=== PATIENT | male | born 1945 | race Caucasian/White ===

== ENCOUNTER 2020-12-21 16:56 | Emergency (ER) | payer MEDICARE, BC ==
[~2020-12-21 16:56] MED LIST: ALBUTEROL SULFAT2 MG PO; ASPIR 8181 MG PO; DAILY VITAMIN1 EAC3 PO; INDOMETHACIN75 MG PO; LIPITOR20 MG PO; METOPROLOL TART25 MG PO; PROAIR HFA INH8.5 GM PO; SYMBICORT 16010.2 GM PO; VITAMIN D31000 UNI1 PO
[2020-12-21 17:22] LABS: BASOPHILS # (AUTO) 0.1 (0.0-0.1); BASOPHILS % 0.5 % (0.0-1.0); EOSINOPHILS # (AUTO) 0.3 (0.0-0.4); EOSINOPHILS % 2.9 % (0.0-6.0); HEMOGLOBIN 13.3 g/dL (14.0-18.0); LYMPHOCYTES # (AUTO) 1.3 (1.0-3.2); LYMPHOCYTES % 13.5 % (18.0-39.1); MEAN CORPUSCULAR HEMOGLOBIN 29.4 pg (28-32); MEAN CORPUSCULAR HGB CONC 31.7 g/dL (31-35); MEAN CORPUSCULAR VOLUME 92.7 fL (81-99); NEUTROPHILS # (AUTO) 6.9 (2.1-6.9); NEUTROPHILS % 72.8 % (38.7-80.0); PLATELET COUNT 289 x10e3/uL (140-360); RED BLOOD COUNT 4.53 x10e6/uL (4.3-5.7); RED CELL DISTRIBUTION WIDTH 13.2 % (11.7-14.4)
[2020-12-21] MEDS ORDERED: CEFEPIME 1 GM in SODIUM CHLORIDE 0.9% 50ML 50 ML IV SCH (17:30)
[2020-12-21 17:37] LABS: ALBUMIN 3.4 g/dL (3.5-5.0); ALBUMIN/GLOBULIN RATIO 0.9 (0.8-2.0); ANION GAP 15.1 mmol/L (8-16); CALCIUM 9.3 mg/dL (8.4-10.2); CREATININE, SERUM 0.82 mg/dL (0.72-1.25); POTASSIUM 4.1 mmol/L (3.5-5.1)
[2020-12-21] MEDS ORDERED: Vancomycin IV 1 GM in SODIUM CHLORIDE 0.9% 250ML 250 ML IV SCH (18:00)
[2020-12-22 01:28] VITALS: BP 18/72
== END 2020-12-22 01:36 | disposition short-term general hospital (02) ==
LOC: ER 17:11
DX: L03.032 Cellulitis of left toe (principal); S91.302A Unspecified open wound, left foot, initial encounter; I10 Essential (primary) hypertension; J44.9 Chronic obstructive pulmonary disease, unspecified; Z85.528 Personal history of other malignant neoplasm of kidney
CPT/HCPCS: 36415; 73630; 80053; 83605; 85025; 87040; 99284; J0692; J3370; J7050

== ENCOUNTER 2021-01-11 09:27 | Outpatient (RCR) | payer MEDICARE, BC ==
[~2021-01-11 09:27] MED LIST changes: +AMMONIUM LACTATE 12% LOTION 225GM BTL ONE; +LIDOCAINE VISC 2% SOLN 15 ML UDC ONE; +LIDOCAINE/PRILOCAINE 2.5-2.5% KIT ONE; +MUPIROCIN 2% OINT 22 GM TUBE ONE
== END 2021-01-13 ==
LOC: WCC 09:27
PROVIDERS: ATTEND Family Medicine Adult Medicine
DX: I70.244 Atherosclerosis of native arteries of left leg with ulceration of heel and midfoot (principal); L97.421 Non-pressure chronic ulcer of left heel and midfoot limited to breakdown of skin; L97.521 Non-pressure chronic ulcer of other part of left foot limited to breakdown of skin; I70.245 Atherosclerosis of native arteries of left leg with ulceration of other part of foot; L03.818 Cellulitis of other sites; L84 Corns and callosities; R60.0 Localized edema; G90.09 Other idiopathic peripheral autonomic neuropathy; I10 Essential (primary) hypertension; E78.5 Hyperlipidemia, unspecified; J44.9 Chronic obstructive pulmonary disease, unspecified; Z85.59 Personal history of malignant neoplasm of other urinary tract organ
CPT/HCPCS: 36415; 82948; 87071; 87075; 87186; 87205

== ENCOUNTER 2021-02-08 08:55 | Outpatient (RCR) | payer MEDICARE, BC ==
[~2021-02-08 08:55] MED LIST changes: -MUPIROCIN 2% OINT 22 GM TUBE ONE; +TRYPSIN/BALSAM PERU/CASTOR OIL ONE
== END 2021-02-13 ==
LOC: WCC 08:55
PROVIDERS: ATTEND Family Medicine Adult Medicine
DX: T81.89XA Other complications of procedures, not elsewhere classified, initial encounter (principal); L97.421 Non-pressure chronic ulcer of left heel and midfoot limited to breakdown of skin; I70.244 Atherosclerosis of native arteries of left leg with ulceration of heel and midfoot; R60.0 Localized edema; L84 Corns and callosities; G90.09 Other idiopathic peripheral autonomic neuropathy; I10 Essential (primary) hypertension; B96.5 Pseudomonas (aeruginosa) (mallei) (pseudomallei) as the cause of diseases classified elsewhere; J44.9 Chronic obstructive pulmonary disease, unspecified; E78.5 Hyperlipidemia, unspecified; Z85.59 Personal history of malignant neoplasm of other urinary tract organ; X58.XXXA Exposure to other specified factors, initial encounter
CPT/HCPCS: 87071; 87075; 87205

== ENCOUNTER 2021-03-13 08:40 | Outpatient (RCR) | payer MEDICARE, BC ==
[~2021-03-13 08:40] MED LIST changes: -IOPAMIDOL 370 MG/ML 200 ML INFUS..BTL INJ ONE; -SODIUM CHLORIDE 0.9% 100 ML ONE
== END 2021-03-15 ==
LOC: WCC 08:40
PROVIDERS: ATTEND Family Medicine Adult Medicine
DX: I70.244 Atherosclerosis of native arteries of left leg with ulceration of heel and midfoot (principal); L97.421 Non-pressure chronic ulcer of left heel and midfoot limited to breakdown of skin; S91.102A Unspecified open wound of left great toe without damage to nail, initial encounter; R60.0 Localized edema; G90.09 Other idiopathic peripheral autonomic neuropathy; L84 Corns and callosities; I10 Essential (primary) hypertension; E78.5 Hyperlipidemia, unspecified; J44.9 Chronic obstructive pulmonary disease, unspecified; R26.81 Unsteadiness on feet; Z85.59 Personal history of malignant neoplasm of other urinary tract organ; X58.XXXA Exposure to other specified factors, initial encounter
CPT/HCPCS: 11042 ×3; 11045; 15275 ×2; 99213 ×7; Q4160 ×2

== ENCOUNTER → 2021-03-13 | Outpatient (CLI) | payer MEDICARE, BC ==
[~2021-03-13] MED LIST changes: -AMMONIUM LACTATE 12% LOTION 225GM BTL ONE; +IOPAMIDOL 370 MG/ML 200 ML INFUS..BTL INJ ONE; -LIDOCAINE VISC 2% SOLN 15 ML UDC ONE; -LIDOCAINE/PRILOCAINE 2.5-2.5% KIT ONE; +SODIUM CHLORIDE 0.9% 100 ML ONE; -TRYPSIN/BALSAM PERU/CASTOR OIL ONE
[2021-03-13 12:51] LABS: ANION GAP 15.5 mmol/L (8-16); CALCIUM 9.5 mg/dL (8.4-10.2); CREATININE, SERUM 0.71 mg/dL (0.72-1.25); POTASSIUM 4.5 mmol/L (3.5-5.1)
== END ==
LOC: CT 11:48
PROVIDERS: ATTEND Internal Medicine Interventional Cardiology
DX: I73.9 Peripheral vascular disease, unspecified (principal)
CPT/HCPCS: 36415; 75635; 80048; J7050; Q9967

== ENCOUNTER 2021-03-22 11:41 | Inpatient (IN) | payer MEDICARE, BC ==
[~2021-03-22] VITALS: Ht 188 cm; Wt 70.3 kg
[2021-03-22] MEDS ORDERED: NAPROXEN250 MG PO (14:11)
[2021-03-22] MEDS ORDERED: CYCLOBENZAPRINE10 MG PO (14:11)
[2021-03-22] MEDS ORDERED: ACETAMINOPHEN 325 MG TAB PO PRN (15:15)
[2021-03-22] MEDS ORDERED: ONDANSETRON HCL INJ 2MG/ML 2ML 2 MG/ML VIAL IV PRN (15:15)
[2021-03-22 15:17] VITALS: BP 138/70
[2021-03-22] MEDS ORDERED: Vancomycin IV 1 GM in SODIUM CHLORIDE 0.9% 250ML 250 ML IV ONE (16:00)
[2021-03-22] MEDS: ALBUTEROL SULFATE HFA 8GM INHALATION AEROSOL INH SCH (16:00)
[2021-03-22] MEDS: CHOLECALCIFEROL 1,000 UNIT TAB PO SCH (16:04)
[2021-03-22] MEDS: ENOXAPARIN SOD INJ 40 MG/0.4 ML SYR SC SCH (16:04)
[2021-03-22] MEDS: METOPROLOL TARTRATE 25 MG TAB PO SCH (16:07)
[2021-03-22] MEDS: BUDESONIDE/FORMOTEROL 160/4.5MCG INHALER INH SCH (19:00)
[2021-03-22 19:35] VITALS: BP 91/48
[2021-03-22] MEDS: CEFEPIME 1 GM in SODIUM CHLORIDE 0.9% 50ML 50 ML IV SCH (21:50)
[2021-03-23] VITALS (11 sets, daily range): BP systolic 97–122; BP diastolic 52–66
[2021-03-23] MEDS ORDERED: Vancomycin IV 1 GM in SODIUM CHLORIDE 0.9% 250ML 250 ML IV SCH ×2 (04:00→18:00)
[2021-03-23] MEDS: CEFEPIME 1 GM in SODIUM CHLORIDE 0.9% 50ML 50 ML IV SCH ×2 (04:38→12:24)
[2021-03-23 05:01] LABS: BASOPHILS % 0.4 % (0.0-1.0); EOSINOPHILS # (AUTO) 0.1 (0.0-0.4); EOSINOPHILS % 0.7 % (0.0-6.0); HEMATOCRIT 39.9 % (38.2-49.6); HEMOGLOBIN 12.2 g/dL (14.0-18.0); LYMPHOCYTES # (AUTO) 0.8 (1.0-3.2); LYMPHOCYTES % 7.8 % (18.0-39.1); MEAN CORPUSCULAR HEMOGLOBIN 27.5 pg (28-32); MEAN CORPUSCULAR HGB CONC 30.6 g/dL (31-35); MEAN CORPUSCULAR VOLUME 89.9 fL (81-99); MONOCYTES # (AUTO) 1.4 (0.2-0.8); MONOCYTES % 13.9 % (4.4-11.3); NEUTROPHILS # (AUTO) 7.6 (2.1-6.9); NEUTROPHILS % 76.9 % (38.7-80.0); PLATELET COUNT 203 x10e3/uL (140-360); RED BLOOD COUNT 4.44 x10e6/uL (4.3-5.7); RED CELL DISTRIBUTION WIDTH 13.2 % (11.7-14.4)
[2021-03-23 05:20] LABS: ALBUMIN 2.8 g/dL (3.5-5.0); ALBUMIN/GLOBULIN RATIO 0.9 (0.8-2.0); ANION GAP 14.1 mmol/L (8-16); CALCIUM 8.8 mg/dL (8.4-10.2); CREATININE, SERUM 0.89 mg/dL (0.72-1.25); POTASSIUM 4.1 mmol/L (3.5-5.1)
[2021-03-23] MEDS: ASPIRIN 81 MG CHEW TAB PO SCH (08:37)
[2021-03-23] MEDS: CHOLECALCIFEROL 1,000 UNIT TAB PO SCH (08:37)
[2021-03-23] MEDS: ATORVASTATIN 20 MG TAB PO SCH (08:37)
[2021-03-23] MEDS: METOPROLOL TARTRATE 25 MG TAB PO SCH ×2 (08:37→16:22)
[2021-03-23] MEDS: ENOXAPARIN SOD INJ 40 MG/0.4 ML SYR SC SCH (16:22)
[2021-03-24] VITALS (7 sets, daily range): BP systolic 90–113; BP diastolic 52–77
[2021-03-24] MEDS: ACETAMINOPHEN/CODEINE 300MG - 30MG TAB PO PRN ×3 (00:05→21:34)
[2021-03-24] MEDS: METOPROLOL TARTRATE 25 MG TAB PO SCH ×2 (09:00→17:00)
[2021-03-24] MEDS: ASPIRIN 81 MG CHEW TAB PO SCH (09:00)
[2021-03-24] MEDS: ATORVASTATIN 20 MG TAB PO SCH (09:00)
[2021-03-24] MEDS: CHOLECALCIFEROL 1,000 UNIT TAB PO SCH (09:00)
[2021-03-24] MEDS: Vancomycin IV 1 GM in SODIUM CHLORIDE 0.9% 250ML 250 ML IV SCH ×2 (09:30→21:44)
[2021-03-24] MEDS ORDERED: CYCLOBENZAPRINE HCL 10 MG TAB PO PRN (16:15)
[2021-03-24] MEDS: ENOXAPARIN SOD INJ 40 MG/0.4 ML SYR SC SCH (17:00)
[2021-03-24] MEDS: ALBUTEROL SULFATE 2 MG TAB PO SCH (17:00)
[2021-03-24] MEDS: NAPROXEN 250 MG TAB PO SCH (17:00)
[2021-03-25] VITALS (9 sets, daily range): BP systolic 98–121; BP diastolic 47–65
[2021-03-25] MEDS: ALBUTEROL SULFATE 2 MG TAB PO SCH ×2 (09:00→16:53)
[2021-03-25] MEDS: Vancomycin IV 1 GM in SODIUM CHLORIDE 0.9% 250ML 250 ML IV SCH ×2 (09:00→21:15)
[2021-03-25] MEDS: METOPROLOL TARTRATE 25 MG TAB PO SCH ×2 (09:00→16:48)
[2021-03-25] MEDS: CHOLECALCIFEROL 1,000 UNIT TAB PO SCH (09:00)
[2021-03-25] MEDS: ASPIRIN 81 MG CHEW TAB PO SCH (09:00)
[2021-03-25] MEDS: NAPROXEN 250 MG TAB PO SCH ×2 (09:00→16:51)
[2021-03-25] MEDS: ATORVASTATIN 20 MG TAB PO SCH (09:00)
[2021-03-25] MEDS: MUPIROCIN 2% OINT 22 GM TUBE TOP SCH (10:00)
[2021-03-25] MEDS ORDERED: BISACODYL 5 MG TAB EC PO ONE (16:30)
[2021-03-25] MEDS ORDERED: SODIUM CHLORIDE 0.9% 250ML 250 ML ONE (21:24)
[2021-03-25] MEDS: CEFEPIME 1 GM in SODIUM CHLORIDE 0.9% 50ML 50 ML IV SCH (22:45)
[2021-03-25] MEDS: ACETAMINOPHEN/CODEINE 300MG - 30MG TAB PO PRN (23:41)
[2021-03-26] VITALS (9 sets, daily range): BP systolic 84–141; BP diastolic 54–72
[2021-03-26 05:05] LABS: RED BLOOD COUNT 4.53 x10e6/uL (4.3-5.7)
[2021-03-26 05:06] LABS: BASOPHILS # (AUTO) 0.1 (0.0-0.1); BASOPHILS % 0.8 % (0.0-1.0); EOSINOPHILS # (AUTO) 0.2 (0.0-0.4); EOSINOPHILS % 2.6 % (0.0-6.0); HEMATOCRIT 39.9 % (38.2-49.6); HEMOGLOBIN 12.5 g/dL (14.0-18.0); LYMPHOCYTES # (AUTO) 0.9 (1.0-3.2); LYMPHOCYTES % 11.6 % (18.0-39.1); MEAN CORPUSCULAR HEMOGLOBIN 27.6 pg (28-32); MEAN CORPUSCULAR HGB CONC 31.3 g/dL (31-35); MEAN CORPUSCULAR VOLUME 88.1 fL (81-99); MONOCYTES # (AUTO) 0.7 (0.2-0.8); MONOCYTES % 9.4 % (4.4-11.3); NEUTROPHILS # (AUTO) 5.7 (2.1-6.9); NEUTROPHILS % 75.2 % (38.7-80.0); PLATELET COUNT 226 x10e3/uL (140-360); RED CELL DISTRIBUTION WIDTH 13.2 % (11.7-14.4)
[2021-03-26 05:23] LABS: INR 0.96; PARTIAL THROMBOPLASTIN TIME 34.1 seconds (23.8-35.5); PROTHROMBIN TIME 13.2 seconds (11.9-14.5)
[2021-03-26] MEDS: CEFEPIME 1 GM in SODIUM CHLORIDE 0.9% 50ML 50 ML IV SCH ×3 (05:33→22:45)
[2021-03-26 05:49] LABS: ANION GAP 15.1 mmol/L (8-16); CALCIUM 9.1 mg/dL (8.4-10.2); CREATININE, SERUM 0.75 mg/dL (0.72-1.25); POTASSIUM 4.1 mmol/L (3.5-5.1)
[2021-03-26] MEDS: BUDESONIDE/FORMOTEROL 160/4.5MCG INHALER INH SCH (07:00)
[2021-03-26] MEDS: ALBUTEROL SULFATE HFA 8GM INHALATION AEROSOL INH SCH ×3 (07:00→15:00)
[2021-03-26] MEDS: Vancomycin IV 1 GM in SODIUM CHLORIDE 0.9% 250ML 250 ML IV SCH ×2 (08:37→21:23)
[2021-03-26] MEDS: ATORVASTATIN 20 MG TAB PO SCH (08:38)
[2021-03-26] MEDS: ASPIRIN 81 MG CHEW TAB PO SCH (08:38)
[2021-03-26] MEDS: METOPROLOL TARTRATE 25 MG TAB PO SCH ×2 (08:39→16:24)
[2021-03-26] MEDS: NAPROXEN 250 MG TAB PO SCH ×2 (08:40→16:24)
[2021-03-26] MEDS: CHOLECALCIFEROL 1,000 UNIT TAB PO SCH (08:40)
[2021-03-26] MEDS: MUPIROCIN 2% OINT 22 GM TUBE TOP SCH (08:40)
[2021-03-26] MEDS: ALBUTEROL SULFATE 2 MG TAB PO SCH ×3 (09:00→16:24)
[2021-03-26] MEDS: CHOLESTYRAMINE 4 GM PACKET PO SCH (21:23)
[2021-03-27 00:04] VITALS: BP 134/68
[2021-03-27] MEDS: CEFEPIME 1 GM in SODIUM CHLORIDE 0.9% 50ML 50 ML IV SCH ×2 (05:20→14:00)
[2021-03-27 05:45] VITALS: BP 123/56
[2021-03-27] MEDS: ALBUTEROL SULFATE HFA 8GM INHALATION AEROSOL INH SCH ×3 (07:00→15:04)
[2021-03-27] MEDS: BUDESONIDE/FORMOTEROL 160/4.5MCG INHALER INH SCH (07:00)
[2021-03-27 07:34] VITALS: BP 105/68
[2021-03-27] MEDS: ATORVASTATIN 20 MG TAB PO SCH (08:27)
[2021-03-27] MEDS: Vancomycin IV 1 GM in SODIUM CHLORIDE 0.9% 250ML 250 ML IV SCH (08:27)
[2021-03-27] MEDS: ASPIRIN 81 MG CHEW TAB PO SCH (08:27)
[2021-03-27] MEDS: CHOLECALCIFEROL 1,000 UNIT TAB PO SCH (08:28)
[2021-03-27] MEDS: METOPROLOL TARTRATE 25 MG TAB PO SCH ×2 (08:28→17:16)
[2021-03-27] MEDS: MUPIROCIN 2% OINT 22 GM TUBE TOP SCH (08:28)
[2021-03-27] MEDS: LACTOBACILLUS ACIDOPHILUS CAPSULE PO SCH ×2 (08:28→17:16)
[2021-03-27] MEDS: NAPROXEN 250 MG TAB PO SCH ×2 (08:28→17:16)
[2021-03-27] MEDS: ALBUTEROL SULFATE 2 MG TAB PO SCH ×2 (08:28→17:16)
[2021-03-27 09:40] VITALS: BP 105/68
[2021-03-27] MEDS: CHOLESTYRAMINE 4 GM PACKET PO SCH ×2 (10:08→15:04)
[2021-03-27] MEDS ORDERED: ONDANSETRON HCL 4 MG ORAL DISINTEGRATING TAB PO PRN (10:15)
[2021-03-27 11:30] VITALS: BP 126/65
[2021-03-27 15:14] VITALS: BP 126/86
[2021-03-27] MEDS ORDERED: CEFEPIME 11 GM/50 ML IV (16:32)
[2021-03-27] MEDS ORDERED: VANCOMYCIN1 GM/2001 IV (16:32)
[2021-03-27] MEDS: ENOXAPARIN SOD INJ 40 MG/0.4 ML SYR SC SCH (17:16)
== END 2021-03-27 18:30 | disposition home health service (06) | DRG 300 ==
LOC: MED/SURG2 12:25
PROVIDERS: ADMIT Internal Medicine; ATTEND Internal Medicine
PROC: 02HV33Z Insertion of Infusion Device into Superior Vena Cava, Percutaneous Approach (ICD-10-PCS; principal; 2021-03-26)
DX: E11.51 Type 2 diabetes mellitus with diabetic peripheral angiopathy without gangrene (principal); L97.421 Non-pressure chronic ulcer of left heel and midfoot limited to breakdown of skin; L03.116 Cellulitis of left lower limb; M86.8X7 Other osteomyelitis, ankle and foot; I70.244 Atherosclerosis of native arteries of left leg with ulceration of heel and midfoot; I70.211 Atherosclerosis of native arteries of extremities with intermittent claudication, right leg; I10 Essential (primary) hypertension; E78.00 Pure hypercholesterolemia, unspecified; E11.69 Type 2 diabetes mellitus with other specified complication; M48.8X6 Other specified spondylopathies, lumbar region; I25.10 Atherosclerotic heart disease of native coronary artery without angina pectoris; J44.9 Chronic obstructive pulmonary disease, unspecified; E78.5 Hyperlipidemia, unspecified; Z87.891 Personal history of nicotine dependence; Z82.49 Family history of ischemic heart disease and other diseases of the circulatory system; Z90.5 Acquired absence of kidney; Z20.822 Contact with and (suspected) exposure to COVID-19; Z86.711 Personal history of pulmonary embolism; Z95.1 Presence of aortocoronary bypass graft; Z95.820 Peripheral vascular angioplasty status with implants and grafts; B95.61 Methicillin susceptible Staphylococcus aureus infection as the cause of diseases classified elsewhere; B96.89 Other specified bacterial agents as the cause of diseases classified elsewhere
CPT/HCPCS: 36415; 36569; 71045; 80048; 80053; 80202; 85025; 85610; 85730; 87071; 87205; 93306; 93925; 96360; 96365; 99251; J0692; J1650; J3370; J7050; U0002

== ENCOUNTER 2021-04-13 10:00 | Outpatient (RCR) | payer MEDICARE, BC ==
[~2021-04-13 10:00] MED LIST changes: +CEFEPIME 11 GM/50 ML IV; +CYCLOBENZAPRINE10 MG PO; +LIDOCAINE VISC 2% SOLN 15 ML UDC ONE; +MUPIROCIN 2% OINT 22 GM TUBE ONE; +NAPROXEN250 MG PO; +VANCOMYCIN1 GM/2001 IV
== END 2021-04-15 ==
LOC: WCC 10:00
PROVIDERS: ATTEND Family Medicine Adult Medicine
DX: I70.244 Atherosclerosis of native arteries of left leg with ulceration of heel and midfoot (principal); L97.421 Non-pressure chronic ulcer of left heel and midfoot limited to breakdown of skin; I10 Essential (primary) hypertension; J44.9 Chronic obstructive pulmonary disease, unspecified; G90.09 Other idiopathic peripheral autonomic neuropathy; E78.5 Hyperlipidemia, unspecified; R26.81 Unsteadiness on feet; Z85.59 Personal history of malignant neoplasm of other urinary tract organ; X58.XXXA Exposure to other specified factors, initial encounter
CPT/HCPCS: 36415; 82948; 87071; 87075; 87186; 87205